=== PATIENT | male | born 1950 | race Caucasian/White ===

== ENCOUNTER 2023-12-03 10:25 | Inpatient (IN) | payer MEDICARE, OTHER ==
[~2023-12-03] VITALS: Ht 177.8 cm; Wt 80.7 kg
[2023-12-03 11:00] VITALS: BP 160/90; TEMP 98; O2SAT 98
[2023-12-03] MEDS ORDERED: ACETAMINOPHEN 325 MG TABLET PO PRN (11:30)
[2023-12-03] MEDS ORDERED: LOSA25TA27 PO (11:58)
[2023-12-03] MEDS ORDERED: LAMO25TA5 PO (11:58)
[2023-12-03] MEDS: BLOOD SUGAR DIAGNOSTIC 1 EACH STRIP IN ONE (12:09)
[2023-12-03] MEDS: clonazePAM 0.5 MG TABLET PO PRN (13:26)
[2023-12-03 16:00] VITALS: BP 135/76; TEMP 98; O2SAT 97
[2023-12-03] MEDS: LamoTRIgine 25 MG TABLET PO SCH (16:44)
[2023-12-03 20:00] VITALS: BP 130/98; TEMP 98.2; O2SAT 98
[2023-12-03] MEDS: MAG HYDROX/AL HYDROX/SIMETH 30 ML UDC PO PRN (20:14)
[2023-12-03] MEDS: TEMAZEPAM 7.5 MG CAPSULE PO PRN (21:40)
[2023-12-04 07:42] LABS: ALANINE AMINOTRANSFERASE 26 U/L (12-78); ALBUMIN 3.6 g/dL (3.4-5.0); ALKALINE PHOSPHATASE 95 U/L (46-116); ASPARTATE AMINOTRANSFERASE 20 U/L (15-37); BILIRUBIN,TOTAL 0.8 mg/dL (0.2-1.0); CALCIUM, SERUM 9.1 mg/dL (8.5-10.1); CARBON DIOXIDE 29 mmol/L (21-32); CHLORIDE 104 mmol/L (98-107); CHOLESTEROL 171 mg/dL (<200); GLUCOSE 109 mg/dL (74-106); HDL CHOLESTEROL 72 mg/dL (40-60); LDL 80 mg/dL (0-99); POTASSIUM 3.8 mmol/L (3.5-5.1); SODIUM SERUM 139 mmol/L (136-145); TOTAL PROTEIN, SERUM 6.6 g/dL (6.4-8.2); TRIGLYCERIDES 117 mg/dL (30-150); UREA NITROGEN, BLOOD 17 mg/dL (7-18)
[2023-12-04 08:00] VITALS: BP 151/91; TEMP 98.6; O2SAT 99
[2023-12-04] MEDS: LOSARTAN POTASSIUM 25 MG TABLET PO SCH (08:40)
[2023-12-04] MEDS: busPIRone 5 MG TABLET PO SCH (08:55)
[2023-12-04] MEDS: FLUOXETINE HCL 20 MG CAPSULE PO SCH (08:55)
[2023-12-04] MEDS: risperiDONE 1 MG TABLET PO SCH (08:55)
[2023-12-04 16:00] VITALS: BP 162/97; TEMP 97.8; O2SAT 98
[2023-12-04 20:00] VITALS: BP 138/86; TEMP 98.2; O2SAT 98
[2023-12-05 08:00] VITALS: BP 146/91; TEMP 97.3; O2SAT 97
[2023-12-05 16:00] VITALS: BP 116/76; TEMP 98.2; O2SAT 99
[2023-12-05 20:15] VITALS: BP 137/75; TEMP 97.9; O2SAT 96
[2023-12-06 08:00] VITALS: BP 129/87; TEMP 97.8; O2SAT 98
[2023-12-06 16:00] VITALS: BP 129/92; TEMP 98; O2SAT 94
[2023-12-06 20:50] VITALS: BP 150/87; TEMP 98.2; O2SAT 98
[2023-12-08 08:00] VITALS: BP 153/93; TEMP 98; O2SAT 99
[2023-12-08] MEDS: MAGNESIUM HYDROXIDE 30 ML UDC PO PRN (13:36)
[2023-12-08 16:14] VITALS: BP 140/89; TEMP 98.1; O2SAT 98
[2023-12-08 20:00] VITALS: BP 157/81; TEMP 98.1; O2SAT 100
[2023-12-08] MEDS: TRAZODONE 50 MG TABLET PO PRN (21:14)
[2023-12-09 08:00] VITALS: BP 156/89; TEMP 98; O2SAT 100
[2023-12-09 16:00] VITALS: BP 132/82; TEMP 98.6; O2SAT 98
[2023-12-09 20:00] VITALS: BP 139/79; TEMP 97.9; O2SAT 97
[2023-12-10 08:00] VITALS: BP 132/89; TEMP 97.7; O2SAT 100
[2023-12-10 16:00] VITALS: BP 131/67; TEMP 97.7; O2SAT 97
[2023-12-10 19:56] VITALS: BP 135/77; TEMP 97.9; O2SAT 96
[2023-12-11 08:00] VITALS: BP 136/77; TEMP 98; O2SAT 98
[2023-12-11 16:00] VITALS: BP 118/70; TEMP 97.7; O2SAT 98
[2023-12-11 20:00] VITALS: BP 154/75; TEMP 98; O2SAT 98
[2023-12-12 08:00] VITALS: BP 149/83; TEMP 97.9; O2SAT 98
[2023-12-12 16:00] VITALS: BP 145/87; TEMP 97.7; O2SAT 97
[2023-12-12 20:04] VITALS: BP 125/71; TEMP 97.9; O2SAT 99
[2023-12-13 08:00] VITALS: BP 136/64; TEMP 97.9; O2SAT 98
[2023-12-13 16:00] VITALS: BP 106/59; TEMP 97.7; O2SAT 98
[2023-12-13 20:26] VITALS: BP 146/84; TEMP 97.9; O2SAT 98
[2023-12-14 08:00] VITALS: BP 118/64; TEMP 97.8; O2SAT 96
[2023-12-14 16:09] VITALS: BP 136/79; TEMP 98; O2SAT 98
[2023-12-14 20:09] VITALS: BP 140/79; TEMP 98; O2SAT 99
[2023-12-15 08:00] VITALS: BP 138/79; TEMP 97.4; O2SAT 98
[2023-12-15 08:22] VITALS: BP 138/79
== END 2023-12-15 18:04 | disposition home or self-care (01) | DRG 885 ==
LOC: GPS 10:28
PROVIDERS: ADMIT Nurse Practitioner Psychiatric/Mental Health; ATTEND Internal Medicine
DX: F33.2 Major depressive disorder, recurrent severe without psychotic features (principal); R45.851 Suicidal ideations; K51.90 Ulcerative colitis, unspecified, without complications; F23 Brief psychotic disorder; I10 Essential (primary) hypertension; F41.9 Anxiety disorder, unspecified; F10.10 Alcohol abuse, uncomplicated; Z79.899 Other long term (current) drug therapy; M62.81 Muscle weakness (generalized); G31.84 Mild cognitive impairment of uncertain or unknown etiology; Z73.6 Limitation of activities due to disability
CPT/HCPCS: 36415; 80048-TC; 80053-TC; 80061-TC; 82962-TC

== ENCOUNTER 2024-06-03 19:51 | Inpatient (IN) | payer MEDICARE, OTHER ==
[~2024-06-03] VITALS: Ht 177.8 cm; Wt 86.2 kg
[~2024-06-03 19:51] MED LIST: LAMO25TA5 PO; LOSA25TA27 PO
[2024-06-03] MEDS ORDERED: ALBU90AE INH (20:15)
[2024-06-03] MEDS ORDERED: MESA800T9 PO (20:15)
[2024-06-03] MEDS ORDERED: TRAZ-182 PO (20:15)
[2024-06-04] MEDS ORDERED: FLUO20CA42 PO (02:23)
[2024-06-04] MEDS ORDERED: TRAZ-252 PO (02:23)
[2024-06-04 02:30] VITALS: BP 146/79; TEMP 97.9; O2SAT 97
[2024-06-04] MEDS ORDERED: TEMAZEPAM 7.5 MG CAPSULE PO PRN ×2 (02:30)
[2024-06-04] MEDS ORDERED: MAGNESIUM HYDROXIDE 30 ML UDC PO PRN (02:30)
[2024-06-04] MEDS ORDERED: ACETAMINOPHEN 325 MG TABLET PO PRN (02:30)
[2024-06-04] MEDS: BLOOD SUGAR DIAGNOSTIC 1 EACH STRIP IN ONE (02:32)
[2024-06-04 08:00] VITALS: BP 128/76; TEMP 98; O2SAT 98
[2024-06-04] MEDS: LORAZEPAM 0.5 MG TABLET PO PRN ×2 (10:18→18:05)
[2024-06-04] MEDS: MESALAMINE 400 MG CAP PO SCH (13:18)
[2024-06-04] MEDS ORDERED: ALBUTEROL FS 2.5 MG/3 ML VIAL.NEB IH PRN (13:30)
[2024-06-04] MEDS: Fluoxetine 10 mg capsule PO SCH (15:35)
[2024-06-04 16:00] VITALS: BP 117/67; TEMP 98; O2SAT 100
[2024-06-04] MEDS: ARIPIPRAZOLE 5 MG TABLET PO SCH (16:17)
[2024-06-04 21:35] VITALS: BP 134/78; TEMP 98.1; O2SAT 98
[2024-06-05 07:13] LABS: BASOPHILS # (AUTO) 0.1 K/uL (0.0-0.2); BASOPHILS % (AUTO) 0.7 % (0.0-2.0); EOSINOPHILS # (AUTO) 0.3 K/uL (0.0-0.7); EOSINOPHILS % (AUTO) 4.3 % (0.0-6.0); HEMATOCRIT 40 % (39-51); HEMOGLOBIN 13.8 g/dL (13.5-17.5); LYMPHOCYTES # (AUTO) 1.9 K/uL (0.8-4.8); LYMPHOCYTES % (AUTO) 24.1 % (20.0-44.0); MEAN CORPUSCULAR HEMOGLOBIN 31 PG (26.0-33.0); MEAN CORPUSCULAR HGB CONC 34 g/dl (31.0-36.0); MEAN CORPUSCULAR VOLUME 91 fL (80-96); MONOCYTES # (AUTO) 0.7 K/uL (0.1-1.30); MONOCYTES % (AUTO) 9.2 % (2.0-12.0); NEUTROPHILS # (AUTO) 4.9 K/uL (1.8-8.9); NEUTROPHILS % (AUTO) 61.7 % (43.0-81.0); PLATELET COUNT (AUTO) 180 K/uL (150-450); RED BLOOD CELL COUNT(AUTO) 4.44 MIL/uL (4.5-6.0); RED CELL DISTRIBUTION WIDTH 14.3 % (11.5-15.0); WHITE BLOOD COUNT (AUTO) 7.9 K/uL (4.3-11.0)
[2024-06-05 07:36] LABS: CALCIUM, SERUM 8.7 mg/dL (8.5-10.1); POTASSIUM 4.5 mmol/L (3.5-5.1)
[2024-06-05 08:00] VITALS: BP 123/69; TEMP 98.6; O2SAT 98
[2024-06-05] MEDS: LOSARTAN POTASSIUM 25 MG TABLET PO SCH (08:31)
[2024-06-05] MEDS: MAG HYDROX/AL HYDROX/SIMETH 30 ML UDC PO PRN (14:31)
[2024-06-05 15:34] VITALS: BP 125/98; TEMP 98.2; O2SAT 97
[2024-06-05 21:15] VITALS: BP 120/96; TEMP 98.1; O2SAT 97
[2024-06-06 08:00] VITALS: BP 160/98; TEMP 97.9; O2SAT 99
[2024-06-06 16:00] VITALS: BP 159/85; TEMP 98.1; O2SAT 98
== END 2024-06-06 17:00 | disposition home or self-care (01) | DRG 885 ==
LOC: ER 20:00 → GPS 06-04 00:47
PROVIDERS: ADMIT Psychiatry & Neurology Psychosomatic Medicine; ATTEND Nurse Practitioner Acute Care
DX: F39 Unspecified mood [affective] disorder (principal); Z59.00 Homelessness unspecified; K51.90 Ulcerative colitis, unspecified, without complications; F33.3 Major depressive disorder, recurrent, severe with psychotic symptoms; F41.9 Anxiety disorder, unspecified; I10 Essential (primary) hypertension; G47.00 Insomnia, unspecified; Z20.822 Contact with and (suspected) exposure to COVID-19; F29 Unspecified psychosis not due to a substance or known physiological condition; F60.9 Personality disorder, unspecified; Z73.6 Limitation of activities due to disability; F15.10 Other stimulant abuse, uncomplicated; R41.9 Unspecified symptoms and signs involving cognitive functions and awareness
CPT/HCPCS: 36415; 80048-TC; 80061-TC; 82962-TC; 85025-TC; 97110-TC; 97116-TC; 97530-TC